=== PATIENT | male | born 1995 | race Two or more races ===

== ENCOUNTER 2016-10-26 13:49 | Emergency (ER) | payer OTHER, MEDICAID ==
[~2016-10-26] VITALS: Ht 167.6 cm; Wt 63.5 kg
[2016-10-26] MEDS ORDERED: ZOFRAN ODT4 MG ORAL (14:22)
[2016-10-26] MEDS ORDERED: RANITIDINE HCL150 MG ORAL (14:22)
[2016-10-26] MEDS ORDERED: Lidocaine 2% Visc 15ml soln ORAL ONE (14:30)
[2016-10-26] MEDS ORDERED: Mylanta II UD 30ml ORAL ONE (14:30)
[2016-10-26] MEDS ORDERED: Dicyclomine HCl 10mg/5ml oral soln ORAL ONE (14:30)
[2016-10-26 14:59] VITALS: BP 108/57
[2016-10-26 15:01] VITALS: BP 108/57
--- NOTE | 2016-10-26 16:56 | Emergency Room Report ---
History of Present Illness General Chief Complaint: Abdominal Pain Source: Patient Present Illness HPI 21-year-old male presents ED complaining of abdominal pain. States having dull epigastric pain for the last 2 months. Burning in nature. 01/02. Nonradiating. No aggravating or relieving factors. Denies chest pain or shortness of breath. Denies fevers and chills. Notes episodes of nausea and vomiting. Currently not feeling nauseous. Patient states he does eat a lot of fast food quite often at night. No other aggravating or relieving factors. Denies any other associated symptoms Allergies: Coded Allergies: No Known Allergies (Unverified , 10/26/16) Patient History Past Medical History: none Past Surgical History: none Pertinent Family History: none Social History: Denies: alcohol use, drug use, smoking Immunizations: UTD Reviewed Nursing Documentation: PMH: Agreed, PSxH: Agreed Nursing Documentation-PMH Past Medical History: No Stated History Review of Systems All Other Systems: negative except mentioned in HPI Physical Exam Vital Signs Date Time Temp Pulse Resp B/P Pulse Ox O2 Delivery O2 Flow Rate FiO2 10/26/16 14:06 98.2 81 11 127/71 97 Room Air Sp02 EP Interpretation: reviewed, normal General Appearance: no apparent distress, alert, GCS 15, non-toxic Head: normocephalic Eyes: bilateral eye PERRL, bilateral eye normal inspection ENT: normal ENT inspection Neck: normal inspection Respiratory: normal inspection Cardiovascular #1: normal inspection Gastrointestinal: normal bowel sounds, soft, non-distended, no guarding, no rebound, tenderness - epigastric Rectal: deferred Genitourinary: no CVA tenderness Musculoskeletal: normal inspection Neurologic: alert, oriented x3, responsive, motor strength/tone normal, sensory intact, speech normal Psychiatric: normal inspection Skin: normal inspection Lymphatic: normal inspection Medical Decision Making Diagnostic Impression: Primary Impression: Gastritis Qualified Codes: K29.00 - Acute gastritis without bleeding ER Course Hospital Course 21-year-old M presents to ED with epigastric pain differential diagnosis: gastritis, SBO, cholecystits Clinical course Patient placed on stretcher. On director of trauma. After initial history physical exam reveals a young male in no acute distress. Abdomen is soft. No guarding or rebound. Minimal epigastric tenderness. Given that symptoms have persisted for 2 months and patient appears comfortable I do not believe patient requires IV access for IV meds. Patient given by mouth Zantac, GI cocktail, Zofran ODT. On reassessment symptoms resolved I feel this is a highly complex case requiring extensive working including EKG/ Rhythm strip, Xray/CT/US, Blood/urine lab work, repeat exams while in ED, and administration of strong opiates/narcotics for pain control, admission to hospital or close patient follow up. Diagnosis - gastritis Stable and discharged to home with prescriptions for zofran, Zantac. Followup with PMD. Return to ED if symptoms recur or worsen Last Vital Signs Date Time Temp Pulse Resp B/P Pulse Ox O2 Delivery O2 Flow Rate FiO2 10/26/16 15:01 98.2 89 16 108/57 100 Room Air Status: improved Disposition: HOME, SELF-CARE Condition: Stable Scripts Ranitidine Hcl* (ZANTAC*) 150 Mg Tablet 150 MG ORAL TWICE A DAY, #30 TAB Prov: CAMPBELL VIERA M.D. 10/26/16 Ondansetron Odt* (ZOFRAN ODT*) 4 Mg Tab.rapdis 4 MG ORAL Q6H Y for Nausea & Vomiting, #30 TAB 0 Refills Prov: CAMPBELL VIERA M.D. 10/26/16 Referrals: [facility] (PCP) Patient Instructions: Gastritis, Adult CAMPBELL VIERA M.D. Oct 26, 2016 16:56
== END 2016-10-26 15:04 | disposition home or self-care (01) ==
LOC: EMR 14:45
DX: K29.00 Acute gastritis without bleeding (principal)
CPT/HCPCS: 99284

== ENCOUNTER 2019-04-24 20:13 | Emergency (ER) | payer MEDICAID, OTHER ==
[~2019-04-24] VITALS: Ht 172.7 cm; Wt 65.8 kg
[~2019-04-24 20:13] MED LIST: RANITIDINE HCL150 MG ORAL; ZOFRAN ODT4 MG ORAL
[2019-04-24 20:35] VITALS: BP 123/75
--- NOTE | 2019-04-24 20:37 | NUR ---
ED Nurse Note: Patient walked in to ERc/o cut on his scrotum while shaving. AAO x4, VSS at this time, skin is warm to touch.
--- NOTE | 2019-04-24 20:57 | Emergency Room Report ---
History of Present Illness General Chief Complaint: Laceration Source: Patient Present Illness HPI HPI: This a 24-year-old otherwise healthy male presented for evaluation of a scrotal laceration. The patient was shaving when he accidentally nicked to the left side of his scrotum causing a small laceration. He was concerned as the bleeding was persistent despite pressure. He was able to clean the area with peroxide and applied Neosporin ointment. Bleeding is now stopped. He is simply requesting a medical evaluation as he was reading online that these "can get really bad." No other injury sustained. He has no other complaints at this time. PMH: Denies PSH: Denies Allergies: Denies Social Hx: Denies alcohol or drugs abuse Allergies: Coded Allergies: No Known Allergies (Unverified , 10/26/16) Nursing Documentation-PMH Past Medical History: No History, Except For Hx Asthma: Yes Review of Systems All Other Systems: negative except mentioned in HPI Physical Exam Vital Signs Date Time Temp Pulse Resp B/P (MAP) Pulse Ox O2 Delivery O2 Flow Rate FiO2 04/24/19 20:16 98.2 52 18 123/75 (91) 98 Room Air General: Awake and alert, no acute distress Resp: Normal work of breathing. : Superficial abrasion over the left scrotum, hemostatic, testes in anatomic position. No penile drainage, no testicular tenderness. Skin: Superficial laceration less than 1 mm over the left scrotum hemostatic MSK: Normal tone and bulk. Moving all extremities. No obvious deformity. Neuro: Awake and alert. Mentating appropriately. Medical Decision Making Diagnostic Impression: Primary Impression: Laceration ER Course 24-year-old male presents for evaluation of a superficial laceration to the left scrotum. Bleeding has now stopped. The patient is already clean the area with peroxide and applied Neosporin ointment. We will cover with bandage and prescribe him bacitracin ointment however this laceration is small, superficial does not require closure or other intervention at this time. He can follow-up with his PMD as needed. We discussed reasons to return to the emergency department. He understands and agrees with the treatment plan will be discharged home Please note that this report is being documented using [employer] technology. This can lead to erroneous entry secondary to incorrect interpretation by the dictating instrument. Last Vital Signs Date Time Temp Pulse Resp B/P (MAP) Pulse Ox O2 Delivery O2 Flow Rate FiO2 04/24/19 20:35 98.2 18 123/75 98 Room Air 04/24/19 20:16 52 Disposition: HOME, SELF-CARE Condition: Stable Scripts Bacitracin (Bacitracin) 28.4 Gm Oint...g. 1 APPLIC TOPIC THREE TIMES A DAY, #28 GM Prov: Jarett Bolden MD 04/24/19 Jarett Bolden MD Apr 24, 2019 20:57
[2019-04-24] MEDS ORDERED: BACITRACIN15 GM TOPIC (21:00)
[2019-04-24 21:08] VITALS: BP 123/75
--- NOTE | 2019-04-24 21:09 | NUR ---
ED Nurse Note: Pt cleared by health care Provider for discharge. DC instructions/prescription was given and explained to pt and verbalized understanding of teachings. All medical deviecs such as ID band removed. Pt is AAO x4, ambulatory and left with all personal belongings.
== END 2019-04-24 21:09 | disposition home or self-care (01) ==
LOC: EMR 20:53
DX: S31.31XA Laceration without foreign body of scrotum and testes, initial encounter (principal); W27.8XXA Contact with other nonpowered hand tool, initial encounter; Y93.E8 Activity, other personal hygiene; Y92.9 Unspecified place or not applicable
CPT/HCPCS: 99281